=== PATIENT | male | born 1955 | race Caucasian/White ===

== ENCOUNTER 2019-04-24 14:17 | Emergency (ER) | payer MEDICARE, OTHER, SELFPAY ==
[2019-04-24 14:26] VITALS: BP 169/87; PULSE 72; RESP 14; TEMP 36.7; O2SAT 98; BMI 22.9
--- NOTE | 2019-04-24 14:26 | DI.RAD.S_ITS ---
PROCEDURE: XR FOREARM RT 2V INDICATIONS: fall TECHNIQUE: 2 views of the forearm were acquired. COMPARISON: None. FINDINGS: Bones: There is a mildly comminuted and impacted fracture of the distal radial metadiaphysis. Fracture extends to the radiocarpal joint and likely distal radioulnar joint. Soft tissues: There is periarticular soft tissue swelling around the wrist. IMPRESSION: 1. Mildly comminuted and impacted fracture of the distal radius. Dictated by: Talha Olvera M.D. on 04/24/2019 at 15:15 Approved by: Tlaha Olvera M.D. on 04/24/2019 at 15:29
--- NOTE | 2019-04-24 14:36 | ED.UPPEXIN ---
HPI - Extremity Injury (Upper) <KAMILAH Monte - Last Filed: 04/24/19 20:40> General Chief Complaint: Extremity Injury, Upper Stated Complaint: FALL LEFT ARM INJURY Time Seen by Provider: 04/24/19 14:21 Source: patient Mode of arrival: Ambulatory Limitations: no limitations History of Present Illness HPI narrative: 63-year-old male presents emergency department complaining of left wrist and forearm pain after slipping on ice. He states he fell with his left arm hitting the ground on the ulnar aspect of his arm. He denies hitting his head or any other trauma such as knee pain, shoulder pain, elbow pain, clavicle pain, or hip pain. He denies taking any blood thinners. Patient denies numbness, tingling, dizziness, chest pain, shortness of breath, fevers, chills, abdominal pain, or other concerns. Patient's reports the pain is a 6/10 dull aching pain that is worse with flexion and extension of wrist. Related Data Home Medications Medication Instructions Recorded Confirmed tamsulosin 0.8 mg PO BEDTIME 04/24/19 04/24/19 Previous Rx's Medication Instructions Recorded hydrocodone-acetaminophen [Hyndman] 1 tab PO Q4-6H PRN #14 tab 04/24/19 Allergies Allergy/AdvReac Type Severity Reaction Status Date / Time No Known Drug Allergies Allergy Verified 04/24/19 14:26 Review of Systems <KAMILAH Monte - Last Filed: 04/24/19 20:40> Review of Systems Narrative: REVIEW OF SYSTEMS: GENERAL: Denies fever or chills. HENT: No head trauma. EYES: No double vision or vision loss. CARDIOVASCULAR: No chest pain or syncope. RESPIRATORY: No shortness of breath or cough. GASTROINTESTINAL: No nausea, vomiting, diarrhea, or constipation. GENITOURINARY: No flank pain or dysuria. MUSCULOSKELETAL: Complains of left wrist pain, see HPI. INTEGUMENTARY: No rash, lesions, or pruritus. NEURO: No numbness, tingling. PSYCH: No behavior or mood changes. Patient History <KAMILAH Monte - Last Filed: 04/24/19 20:40> Medical History No significant past medical history (Acute) Social History Smoking Status: Unknown if ever smoked Smoking Status: Unknown if ever smoked alcohol intake frequency: holidays/special occasions only Substance Use Type: does not use Exam <KAMILAH Monte - Last Filed: 04/24/19 20:40> Initial Vital Signs Initial Vital Signs: Vital Signs Temperature 98.0 F 04/24/19 14:26 Pulse Rate 72 04/24/19 14:26 Respiratory Rate 14 04/24/19 14:26 Blood Pressure 169/87 H 04/24/19 14:26 Pulse Oximetry 98 04/24/19 14:26 PHYSICAL EXAMINATION: GENERAL: Well groomed, alert, and cooperative. Answers questions promptly and appropriately. Vital signs noted. HENT: Normocephalic, atraumatic. EYES: Symmetrical, sclera white, no periorbital swelling. CARDIOVASCULAR: S1 and S2 sounds normal. Regular rate and rhythm, no murmurs, clicks, or bruits. RESPIRATORY: Normal respiratory rate, trachea midline, airway patent. No stridor, nasal flaring or accessory muscle use. MUSCULOSKELETAL: Swelling and tenderness to left wrist, decreased flexion due to pain. Patient able to supinate and pronate per reports increased pain with supination. Patient able to move all fingers. Normal gait and coordination. Equal tone and mass bilaterally. No spinal tenderness or deformities. Post reduction and splint CMS intact. EXTREMITIES: CMS intact. radial pulses 2+ intact bilaterally. SKIN: Warm, dry, soft, appropriate color for ethnicity. No lesions, rashes, or wounds. NEURO: Alert and Oriented X 3. No sensory deficits. PSYCH: Appropriate affect and mood. <Brenda James DO - Last Filed: 04/27/19 07:31> Initial Vital Signs Initial Vital Signs: Vital Signs Temperature 98.0 F 04/24/19 14:26 Pulse Rate 72 04/24/19 14:26 Respiratory Rate 14 04/24/19 14:26 Blood Pressure 169/87 H 04/24/19 14:26 Pulse Oximetry 98 04/24/19 14:26 <Brenda James DO - Last Filed: 04/27/19 07:31> Nerve Block Nerve Block 1: Time out performed: Yes Local Anesthetic: lidocaine 1% and with epi Amount of anesthesia used (mL): 10 Side: left Nerve Blocks: hematoma block Patient Tolerated Procedure: Well Complications: none Orthopedic Fracture Reduction Fracture #1: Time Out Performed: Yes Side: left Fracture Reduction Location: radius and ulna Analgesia: hematoma block Technique: direct manipulation Post Reduction X-rays Demonstrate: acceptable reduction Post-reduction neuro exam: intact Post-reduction vascular exam: intact Splint Applied: Yes Patient Tolerated Procedure: Well Orthopedic Splinting/Casting Injury #1: Side: left Upper Extremity Injury Location: wrist Upper Extremity Immobilizer: sling/shoulder immobilizer and sugar tong splint Post splinting neuro exam: intact Post splinting vascular exam: intact Placed by: Provider Course <KAMILAH Monte - Last Filed: 04/24/19 20:40> Course Course Narrative: Reduction and nerve block performed by Dr. James. Splinting applied. Post reduction CMS intact. Orders Ordered: Discontinued Medications Lidocaine HCl (Xylocaine 1%) 10 ml INJ NOW ONE Stop: 04/24/19 17:21 Lidocaine/Epinephrine (Xylocaine 2% W/Epi) 20 ml INJ INTRA-OP ONE Stop: 04/24/19 17:25 Consultations Consultation #1: Dr. Rosario consulted, agree with plan for reduction and clinic follow up. Requesting dedicated wrist films post-reduction. Consultation #2: Patient staffed with Dr. James. Vital Signs Vital signs: Vital Signs - 8 hr 04/24/19 14:26 Temperature 98.0 F Pulse Rate 72 Respiratory Rate 14 Blood Pressure 169/87 H Pulse Oximetry 98 <Brenda James DO - Last Filed: 04/27/19 07:31> Orders Ordered: Discontinued Medications Lidocaine HCl (Xylocaine 1%) 10 ml INJ NOW ONE Stop: 04/24/19 17:21 Lidocaine/Epinephrine (Xylocaine 2% W/Epi) 20 ml INJ INTRA-OP ONE Stop: 04/24/19 17:25 Vital Signs Vital signs: Vital Signs - 8 hr 04/24/19 14:26 Temperature 98.0 F Pulse Rate 72 Respiratory Rate 14 Blood Pressure 169/87 H Pulse Oximetry 98 MDM - Extremity Injury (Upper) <KAMILAH Monte - Last Filed: 04/24/19 20:40> Medical Records Attestation: I reviewed the patient's medical records. Lab Data Attestation: I reviewed the patient's lab results. Imaging Data Left wrist XR: Radiologist's Impression: [place] [address] XRay Report Signed Patient: Paul Barber [facility]#: [id number] : [id number] Age/Sex: 63 / MDate of Service: 04/24/19 Loc: ED Accession Number: [id number] Procedure: XR forearm LT 2V Ordering Provider: Brenda James D.O. PROCEDURE: XR FOREARM RT 2V INDICATIONS: fall TECHNIQUE: 2 views of the forearm were acquired. COMPARISON: None. FINDINGS: Bones: There is a mildly comminuted and impacted fracture of the distal radial metadiaphysis. Fracture extends to the radiocarpal joint and likely distal radioulnar joint. Soft tissues: There is periarticular soft tissue swelling around the wrist. IMPRESSION: 1. Mildly comminuted and impacted fracture of the distal radius. Dictated by: Talha Olvera M.D. on 04/24/2019 at 15:15 Approved by: Talha Olvera M.D. on 04/24/2019 at 15:29 Left wrist post reduction: Radiologist's Impression: [address] [address] XRay Report Signed Patient: Paul Barber [facility]#: [id number] : [id number]:[id number] Age/Sex: 63 / MDate of Service: 04/24/19 Loc: ED Accession Number: [id number] Procedure: XR wrist LT min 3V Ordering Provider: Chary Roper PROCEDURE: XR WRIST LT MIN 3V INDICATIONS: Post reduction TECHNIQUE: 2 views of the wrist were acquired. COMPARISON: [facility], , XR FOREARM LT 2V, 04/24/2019, 14:56. FINDINGS: Bones: Splint material obscures fine bone detail. Comminuted distal radius fracture demonstrates slightly improved alignment but persistent mild radial and dorsal displacement of the distal fragments. Distal radioulnar joint is slightly widened. Radiocarpal alignment appears grossly normal. Soft tissues: No suspicious soft tissue calcifications. IMPRESSION: Slightly improved alignment of comminuted distal radius fracture postreduction. Dictated by: Maddison De Los Santos M.D. on 04/24/2019 at 18:49 Approved by: Maddison De Los Santos M.D. on 04/24/2019 at 18:51 [facility] Narrative Medical decision making narrative: This is a 63-year-old male with a comminuted distal radius fracture That was reduced with a hematoma block, Post reduction films showed slightly improved alignment. Patient was placed in a reverse sugar-tong splint. He was given a sling and pain medications and referred to Orthopedic surgery. CMS remains pre and post reduction. Very little concern for any other distracting injuries due to examination. return precautions given for new or worsening symptoms. Patient agrees with plan of care and verbalized understanding. <Brenda James DO - Last Filed: 04/27/19 07:31> [facility] Narrative Medical decision making narrative: I personally seen evaluated patient performed reduction along with hematoma block Discharge Plan Departure Patient Disposition: Home Clinical Impression: Distal radius fracture, left Qualifiers: Encounter type: initial encounter Fracture type: closed Fracture morphology: other fracture Qualified Code(s): S52.592A - Other fractures of lower end of left radius, initial encounter for closed fracture Discharge Date/Time: 04/24/19 18:37 Instructions: DI for Wrist Fracture Activity Restrictions/Additional Instructions: Thank you for entrusting me with your care today. As discussed, please leave the splint in place until you see an orthopedic. Please call the Orthopedics office listed below tomorrow and schedule an appointment, Tell them you were seen in the emergency department. I prescribed you some medication for pain. You have been prescribed a narcotic medication, this medication can make you drowsy. Do not drive while using this medication or perform activities that require mental alertness. These medications can also make you constipated, please use [id number] docusate sodium as needed for constipation. Return emergency department for new or worsening symptoms such as chest pain, shortness of breath, severe worsening of left arm pain, color difference in fingers, or other concerns. Prescriptions: New hydrocodone-acetaminophen [Hyndman] 5-325 mg tablet 1 tab PO Q4-6H PRN (Reason: pain) Qty: 14 RF: 0 No Action tamsulosin 0.4 mg Capsule 0.8 mg PO BEDTIME RF: 0 Referrals: Nando Rosario MD [Physician] - (Mildly comminuted and impacted fracture of the distal radius.) Josue Nevarez MD [Primary Care Provider] -
--- NOTE | 2019-04-24 17:53 | DI.RAD.S_ITS ---
PROCEDURE: XR WRIST LT MIN 3V INDICATIONS: Post reduction TECHNIQUE: 2 views of the wrist were acquired. COMPARISON: [facility], CR, XR FOREARM LT 2V, 04/24/2019, 14:56. FINDINGS: Bones: Splint material obscures fine bone detail. Comminuted distal radius fracture demonstrates slightly improved alignment but persistent mild radial and dorsal displacement of the distal fragments. Distal radioulnar joint is slightly widened. Radiocarpal alignment appears grossly normal. Soft tissues: No suspicious soft tissue calcifications. IMPRESSION: Slightly improved alignment of comminuted distal radius fracture postreduction. Dictated by: Maddison De Los Santos M.D. on 04/24/2019 at 18:49 Approved by: Maddison De Los Santos M.D. on 04/24/2019 at 18:51
--- NOTE | 2019-04-24 18:18 | PC.NURSE ---
1800, noticed color of fingers turning purple/ states left 5th finger going numb/ hedlin aware. rewrap thaddeus/ sl less tight/ color back in fingers and numbness gone per pt. pt reminded that if color of fingers change or fingers become cold or numb to rewrap thaddeus to make more comfortable and to follow up as needed.
== END 2019-04-24 18:37 | disposition home or self-care (01) ==
PROVIDERS: Emergency Provider Nurse Practitioner; PCP Family Medicine
DX: S52.592A Other fractures of lower end of left radius, initial encounter for closed fracture (principal); W00.0XXA Fall on same level due to ice and snow, initial encounter
CPT/HCPCS: 25605; 29125; 64450; 73090; 73110; 99284

== ENCOUNTER → 2019-04-27 13:58 | Outpatient (CLI) | payer MEDICARE, OTHER, SELFPAY ==
[2019-04-27 14:44] LABS: Add Manual Diff / Slide Review NO; Basophils Absolute Auto 100 /uL (0-100); Eosinophils Absolute Auto 100 /uL (0-450); Eosinophils Percent Auto 1.8 % (2-4); Hematocrit 44.1 % (41-53); Hemoglobin 14.7 g/dL (13.5-17.5); Lymphocytes Absolute Auto 1300 /uL (1100-4500); Mean Corpuscular HGB Conc 33.3 % (30-36); Mean Corpuscular Hemoglobin 28.3 PG (26-34); Mean Corpuscular Volume 85.1 fL (80-100); Monocytes Absolute Auto 400 /uL (0-900); Monocytes Percent Auto 7.5 % (3-14); Neutrophils Absolute Auto 3700 /uL (1500-7000); Neutrophils Percent Auto 66.7 % (50-75); Platelet Count 161 X10^3/uL (150-400); Red Blood Cell Count 5.18 X10^6/uL (4.5-5.9); Red Cell Distribution Width 14.8 % (11.6-14.8); White Blood Cell Count 5.5 X10^3/uL (4.5-11.0)
== END ==
PROVIDERS: PCP Family Medicine; Visit Provider Orthopaedic Surgery Adult Reconstructive Orthopaedic Surgery
DX: Z01.818 Encounter for other preprocedural examination (principal); Z01.812 Encounter for preprocedural laboratory examination
CPT/HCPCS: 36415; 85025; 93005

== ENCOUNTER → 2020-10-22 13:05 | Outpatient (CLI) | payer MEDICARE, OTHER, SELFPAY ==
[2020-10-22 19:50] LABS: Prostate Specific Antigen 4.43 ng/mL (0.10-4.00)
== END ==
PROVIDERS: PCP Family Medicine; Visit Provider Specialist
DX: N13.8 Other obstructive and reflux uropathy (principal); N40.1 Benign prostatic hyperplasia with lower urinary tract symptoms; Z87.898 Personal history of other specified conditions
CPT/HCPCS: 84153

== ENCOUNTER → 2020-10-27 10:45 | Outpatient (CLI) | payer MEDICARE, OTHER, SELFPAY ==
[2020-10-27 20:01] LABS: Add Manual Diff / Slide Review NO; Basophils Absolute Auto 0 /uL (0-100); Eosinophils Absolute Auto 100 /uL (0-450); Eosinophils Percent Auto 1.4 % (2-4); Hematocrit 43.7 % (41-53); Hemoglobin 14.7 g/dL (13.5-17.5); Lymphocytes Absolute Auto 1100 /uL (1100-4500); Lymphocytes Percent Auto 24.9 % (25-40); Mean Corpuscular HGB Conc 33.7 % (30-36); Mean Corpuscular Hemoglobin 28.2 PG (26-34); Mean Corpuscular Volume 83.9 fL (80-100); Monocytes Absolute Auto 400 /uL (0-900); Monocytes Percent Auto 8.5 % (3-14); Neutrophils Absolute Auto 2900 /uL (1500-7000); Neutrophils Percent Auto 64.2 % (50-75); Platelet Count 229 X10^3/uL (150-400); Red Blood Cell Count 5.22 X10^6/uL (4.5-5.9); Red Cell Distribution Width 14.8 % (11.6-14.8); White Blood Cell Count 4.5 X10^3/uL (4.5-11.0)
[2020-10-27 20:11] LABS: Alanine Aminotransferase 36 IU/L (<50); Albumin Globulin Ratio 1.5 (1.0-2.8); Alkaline Phosphatase 79 U/L (38-126); Aspartate Aminotransferase 39 IU/L (17-59); BUN Creatinine Ratio 16.5 (6-22); Bilirubin Total 0.6 mg/dL (0.2-1.3); Blood Urea Nitrogen 16 mg/dL (9-20); Calcium 9.5 mg/dL (8.4-10.2); Carbon Dioxide 30 mmol/L (22-32); Chloride 100 mmol/L (98-107); Estimated Glomerular Filt Rate > 60.0 mL/min (>60); Globulin 2.6 g/dL (1.7-4.1); Glucose 100 mg/dL (80-110); HEMOLYSIS < 15 (0-50); Potassium 5.3 mmol/L (3.4-5.1); Sodium 136 mmol/L (137-145); Total Protein 6.6 g/dL (6.3-8.2)
== END ==
PROVIDERS: PCP Family Medicine; Visit Provider Physician Assistant
DX: K30 Functional dyspepsia (principal); R63.0 Anorexia; R68.81 Early satiety
CPT/HCPCS: 80053; 85025

== ENCOUNTER → 2020-11-05 11:07 | Outpatient (CLI) | payer MEDICARE, OTHER, SELFPAY ==
--- NOTE | 2020-11-05 11:08 | DI.MRI.S_ITS ---
PROCEDURE: MR ABDOME PELVIS WWO CON INDICATIONS: loss of appetite, early satiety, sensation of fullness abdom TECHNIQUE: Coronal HASTE, axial 2D FLASH in- and [id number]; axial breath-hold T2 FSE; dynamic axial VIBE during IV gadolinium administration; postgadolinium coronal VIBE or 2D FLASH with fat saturation from the hepatic dome to the iliac crests. COMPARISON: None. FINDINGS: Image quality: Limited by patient breathing motion during image acquisition.. Lung bases: No lesions found. 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 Nodes and vessels: No aneurysm or dissection suspected. Bowel and peritoneum: Large and small bowel visualized appears normal. Pelvis: The median lobe of the prostate gland appears heterogeneous and enlarged, moderately, invaginating against the bladder wall. Bones and soft tissues: No osseous lesion found. IMPRESSION: Prostate gland enlargement, prominence of the median lobe of the prostate gland invaginating against the bladder wall at and to the right of midline. Urology consultation may be warranted if there is evidence of diminishing bladder function. Please correlate with PSA values to determine whether urology consultation and prostate gland biopsy is warranted. Dictated by: Juan Godinez M.D. on 11/05/2020 at 16:40 Approved by: Juan Godinez M.D. on 11/05/2020 at 16:47
== END ==
PROVIDERS: Referring Provider Physician Assistant; Visit Provider Physician Assistant
DX: R63.0 Anorexia (principal); R68.81 Early satiety; R10.9 Unspecified abdominal pain; K30 Functional dyspepsia; N40.0 Benign prostatic hyperplasia without lower urinary tract symptoms
CPT/HCPCS: 72197; 99214; A9579

== ENCOUNTER → 2020-12-01 09:34 | Outpatient (CLI) | payer MEDICARE, OTHER, SELFPAY ==
[2020-12-01 20:33] LABS: COVID19 - ORCAS (NP or Nasal) Negative (Negative)
== END ==
PROVIDERS: PCP Physician Assistant; Visit Provider Physician Assistant
DX: Z20.822 Contact with and (suspected) exposure to COVID-19 (principal)
CPT/HCPCS: C9803; U0003

== ENCOUNTER 2020-12-04 13:44 | Day surgery (SDC) | payer MEDICARE, OTHER, SELFPAY ==
--- NOTE | 2020-12-04 | PATH_ITS ---
[facility] Accession Number: [id number] . 01 Material submitted: . gastrointestinal site - GASTRIC POLYPS . 01 Clinical history: . EGD/COLONOSCOPY . 02 Diagnosis: Stomach, Polyps, Biopsies: Fundic gland polyps. No evidence of Helicobacter organisms on H/E stain. Negative for intestinal metaplasia. Negative for dysplasia and malignancy. [facility] 12/08/2020 1448 Local . 02 Electronically signed: . Josey Lopez MD, Pathologist NPI- [id number] . 01 Gross description: . GASTRIC POLYPS: Received in formalin are 2 fragment(s) of vasques, soft tissue measuring 0.7 x 0.5 x 0.4 cm to 0.6 x 0.5 x 0.5 cm which are inked, bisected and submitted entirely in 1 cassette(s) /QBJ 12/05/2020 0311 Local . 02 Pathologist provided ICD-10: R10.9 . 02 CPT . 645013 Performed at: 01 [facility] [address], [place], [place] [id number] MD Talha Aragon MD Phone: [phone] Performed at: 02 [facility] [address] [place], [place] [id number] MD Josey Lopez MD Phone: [phone]
[2020-12-04] MEDS: LACTATED RINGERS 1,000 ML 200 ML IV (14:03)
[2020-12-04 14:08] VITALS: BP 132/85; PULSE 104; RESP 16; TEMP 36.7; O2SAT 99; BMI 23.1
--- NOTE | 2020-12-04 14:21 | PM.PREOP ---
Pre-operative Note Interval Note History & Physical reviewed/Exam performed by Physician: Yes Changes to H&P: No
--- NOTE | 2020-12-04 15:13 | PM.OP.ENDO ---
Operative Date/Time/Diagnoses Date of procedure: 12/04/20 Time of procedure: 15:14 Pre-op diagnosis: anorexia. screening colonoscopy Post-op diagnosis: same Procedure & Clinicians Study performed: EGD and colonoscopy Same procedure as scheduled: Yes Indications: anorexia, screening Surgeon: Stanislav Bird Procedure Notes Procedure in detail: Patient placed in left lateral decubitus position. Time out was performed. Procedural sedation was administered with Versed and Fentanyl. A bite block was placed. the scope was inserted into the mouth and advanced through the esophagus and into the stomach. The stomach was notable for multiple gastric polyps of approximately 1 cm. The polyps were removed with hot snare. The pylorus was intubated and the duodenum was normal to the 2nd portion. The scope was retroflexed within the stomach and there was no hiatal hernia. No ulcers, or gastritis. The scope was withdrawn into the esophagus the Z line was seen at 40 cm from the incisions. There was no Yousif's esophagitis or masses or strictures. Stomach was desufflated and scope removed. Patient tolerated procedure well. Examination began with a thorough inspection of the perianal area there was no evidence of fissures, fistulae, external hemorrhoids or cutaneous malignancy. The colonoscopy scope was then placed into the anal canal and was advanced to the cecum, which was identified by the ileocecal valve, the appendiceal orifice and the confluence of the taenia. The scope was then slowly withdrawn examining colon thoroughly in all directions, irrigating it of any residual stool. FINDINGS 1.Gastric polyps 2. Sigmoid diverticuloisis 3. No colonic masses or polyps The patient tolerated the procedure well. They will be discharged once criteria are met. The prep was of fair quality. The withdrawl time was 11 minutes. The sedation time was 43 minutes. Specimen(s): other (gastric polyps) Complications: none Impression: gastric polyps Post-procedure Plan for aftercare: will follow up with biopsy results Disposition: same day surgery
[2020-12-04 15:16] VITALS: BP 117/70; PULSE 90; RESP 14; TEMP 36.4; O2SAT 96
[2020-12-04] MEDS: LIDOCAINE 4% SOLN 50 ML 20 ML TOP (15:16)
[2020-12-04] MEDS: MIDAZOLAM 5 MG/5 ML VIAL IV (15:16)
[2020-12-04] MEDS: fentaNYL 250 MCG/5 ML INJ IV (15:17)
[2020-12-04 15:21] VITALS: BP 120/70; PULSE 83; RESP 12; O2SAT 96
[2020-12-04 15:26] VITALS: BP 126/79; PULSE 100; RESP 12; O2SAT 97
[2020-12-04 15:31] VITALS: BP 122/77; PULSE 94; RESP 13; TEMP 36.7; O2SAT 98
[2020-12-04 15:38] VITALS: BP 122/77; PULSE 88; RESP 17; TEMP 36.7; O2SAT 98
== END 2020-12-04 16:05 | disposition home or self-care (01) ==
PROVIDERS: PCP Physician Assistant; Referring Provider Surgery; Visit Provider Surgery
PROC: 0DJ08ZZ Inspection of Upper Intestinal Tract, Via Natural or Artificial Opening Endoscopic (ICD-10-PCS; CPT 43235; principal; 2020-12-04 14:30)
PROC: 0DJD8ZZ Inspection of Lower Intestinal Tract, Via Natural or Artificial Opening Endoscopic (ICD-10-PCS; CPT 45378; 2020-12-04 14:30)
DX: R10.9 Unspecified abdominal pain (principal); R63.0 Anorexia; K31.7 Polyp of stomach and duodenum; K57.30 Diverticulosis of large intestine without perforation or abscess without bleeding
CPT/HCPCS: 43251; 45378; 99152; 99153; J2250; J3010

== ENCOUNTER → 2021-05-29 13:33 | Outpatient (CLI) | payer MEDICARE, OTHER, SELFPAY ==
[2021-05-29 20:14] LABS: Prostate Specific Antigen 2.36 ng/mL (0.10-4.00)
== END ==
PROVIDERS: PCP Physician Assistant; Visit Provider Specialist
DX: R97.20 Elevated prostate specific antigen [PSA] (principal)
CPT/HCPCS: 84153

== ENCOUNTER → 2021-09-11 12:13 | Outpatient (CLI) | payer MEDICARE, OTHER, SELFPAY ==
--- NOTE | 2021-09-11 12:15 | DI.MRI.S_ITS ---
PROCEDURE: MR LUMBAR SPINE WO CON INDICATIONS: Right L5 radiculopathy TECHNIQUE: Noncontrast sagittal T1 spin echo and T2 fast echo, sagittal STIR, and T2 fast spin echo through the lumbar spine. Additional oblique axial images were obtained through the lower lumbar spine. In cases with scoliosis, additional coronal T2 fast spin echo may be performed. COMPARISON: [facility], CT, ABDOMEN/PELVIS WITH CONTRAST, 11/19/2016, 11:38. [facility] ([place]), CR, XR LUMBAR SPINE 2-3V, 03/26/2021, 14:21. FINDINGS: Image quality: Excellent. Alignment and Curvature: There is mild grade 1 anterolisthesis at the L4-L5 level. At L5-S1, there is minimal retrolisthesis seen. Bone Marrow: Marrow is of normal overall signal. No acute vertebral body compression fractures. Spinal Cord: Conus medullaris terminates at the L1 level. Visualized cord demonstrates normal signal and size. Paraspinous Soft Tissues: No paravertebral masses. T12-L1: Normal appearance. L1-L2: Normal appearance. L2-L3: Muqf-ls-zcofahgm loss of disc height and disc signal can be seen. Moderate disc bulge is seen, which is eccentric to the left. Mild facet joint hypertrophy is seen. There is a superimposed central disc protrusion. Moderate bilateral neural foraminal narrowing can be seen, left worse than right. Moderate central canal narrowing is seen. L3-L4: The disc height is well-preserved. Loss of disc signal is seen at this level. Moderate generalized disc bulge is seen. There is a superimposed central disc protrusion. Moderate facet joint hypertrophy is seen. There is moderate to severe left-sided and at least moderate right-sided neural foraminal narrowing. There is a degree of compression seen upon the exiting L3 nerve roots. Moderate central canal narrowing is seen. L4-L5: Moderate loss of disc height is seen. Loss of disc signal is seen. At least moderate disc bulge is seen. There is a mild center disc extrusion seen. Moderate to prominent facet hypertrophy is seen. There is moderate to severe bilateral neural foraminal narrowing seen, with an associated a degree of compression seen upon the exiting nerve roots. There is severe central canal narrowing seen, as on series 6, image 29. L5-S1: At least moderate loss of disc height and disc signal can be seen. Mild to moderate disc bulge is seen. There is a superimposed central disc protrusion. There is a focal annular fissure seen posteriorly. Mild to moderate facet hypertrophy is seen. There is at least moderate bilateral neural foraminal narrowing seen. Moderate central canal narrowing is seen. IMPRESSION: Multiple levels of lumbar spine degenerative change are seen, which are worst at the L4-L5 level, where there is severe central canal narrowing and moderate to severe bilateral neural foraminal narrowing, with associated compression upon the exiting L4 nerve roots. Dictated by: Clint Hagan M.D. on 09/11/2021 at 12:32 Approved by: Clint Hagan M.D. on 09/11/2021 at 12:37
== END ==
PROVIDERS: Referring Provider Physical Medicine & Rehabilitation; Visit Provider Physical Medicine & Rehabilitation
DX: M47.26 Other spondylosis with radiculopathy, lumbar region (principal); M47.27 Other spondylosis with radiculopathy, lumbosacral region; M48.061 Spinal stenosis, lumbar region without neurogenic claudication; M48.07 Spinal stenosis, lumbosacral region
CPT/HCPCS: 72148

== ENCOUNTER → 2021-09-28 07:36 | Outpatient (CLI) | payer MEDICARE, OTHER, SELFPAY ==
[2021-09-28 20:22] LABS: COVID19 - ORCAS (NP or Nasal) Negative (Negative)
== END ==
PROVIDERS: Visit Provider Family Medicine
DX: Z20.822 Contact with and (suspected) exposure to COVID-19 (principal)
CPT/HCPCS: C9803; U0003

== ENCOUNTER 2021-09-29 14:53 | Outpatient (CLI) | payer MEDICARE, OTHER, SELFPAY ==
[2021-09-29] VITALS (9 sets, daily range): BP systolic 150–192; BP diastolic 88–110; PULSE 74–98; RESP 15–24; TEMP 36.8; O2SAT 96–100
--- NOTE | 2021-09-29 14:55 | DI.RAD.S_ITS ---
PROCEDURE: PAIN L/S TRANSFORAM INJECT JAYLAN COMPARISON: Located Within [facility], MR, MR LUMBAR SPINE WO CON, 09/11/2021, 12:34. [facility] ([place]), CR, XR LUMBAR SPINE 2-3V, 03/26/2021, 14:21. INDICATIONS: SPONDYLOSIS FINDINGS: 7 intraoperative fluoroscopy images were obtained demonstrating needle placement at the level of L4-L5 bilaterally. IMPRESSION: Fluoroscopy for needle placement. Dictated by: Cathy Zambrano M.D. on 09/29/2021 at 17:12 Approved by: Cathy Zambrano M.D. on 09/29/2021 at 17:13
[2021-09-29] MEDS: MIDAZOLAM 2 MG/2 ML VIAL (16:20)
[2021-09-29] MEDS: MIDAZOLAM 5 MG/5 ML VIAL IV (16:25)
[2021-09-29] MEDS: IOPAMIDOL 15 ML VIAL 3 ML INJ (16:26)
[2021-09-29] MEDS: BUPIVACAINE 0.25% (PF) VIAL 2 ML INJ (16:26)
[2021-09-29] MEDS: BETAMETHASONE 30 MG/5 ML MDV 12 MG INJ (16:27)
[2021-09-29] MEDS: DEXAMETHASONE 10 MG/ML VIAL 20 MG INJ (16:27)
--- NOTE | 2021-09-29 16:40 | PM.PROC.IR.1 ---
Date/Time/Diagnoses Date of procedure: 09/29/21 Time of procedure: 16:40 Pre-procedure diagnosis: 1. FORAMINAL STENOSIS WITH LE SYMPTOMS Procedure Notes Procedure: 1. FLUOROSCOPICALLY GUIDED CONTRAST CONTROLLED TRANSFORAMINAL EPIDURAL STEROID INJECTION - BILATERAL L4/5 TFESI Indications: Paul is referred by Dr. Pineda for treatment of Foraminal Stenosis with bilateral LE Symptoms Physician: Vinicius Cabrera Total Fluoroscopy time (seconds): 13 Total sedation minutes: 16 Complications: none Procedure in detail & Post-procedure care: FINDINGS Foraminal Nerve Root Compression secondary to disc disease and facet hypertrophy DESCRIPTION OF PROCEDURE Following review of allergy and review of potential side effects and complications, including, but not necessarily limited to, infection, allergic reaction, local tissue breakdown, stroke, temporary or permanent nerve injury, paralysis, and possible , the patient indicated that the patient understood and agreed to proceed. An informed consent document was signed by the patient, witnessed by a nurse, and placed in the patient's chart. Additionally, other treatment options including medications, modalities, and physical therapy were reviewed with the patient. After review of previous anaesthesic history and IV conscious sedation the patient was deemed safe to proceed with today?s procedure with IV conscious sedation as ASA class II designation. Safety time-out was performed to confirm patient ID, procedure to be performed and site of procedure. IV sedation was accomplished with a combination of 4mg of Versed was administered by the RN after DO order, titrated to patient comfort during the course of the procedure while the patient remained responsive to all verbal commands In the prone position following sterile prep and drape of the lumbar region, the right L4/5 posterior neuroforamen was identified fluoroscopically. The skin was anesthetized via a 25-gauge 1.5-inch needle with 1% lidocaine solution. At this point, a 25-gauge 3.5-inch spinal needle was atraumatically introduced and advanced under fluoroscopic guidance through the posterior right L4/5 neuroforamen to approximately the anterior aspect of the canal. Depth was confirmed on lateral view. Following negative aspiration, injection of approximately 1.5cc of Isovue 200 under live fluoroscopy in the AP view confirmed excellent flow along the nerve root, into the epidural space without vascular or intrathecal uptake observed Radiological data, including multiple fluoroscopic views of the lumbosacral spine, reveal a spinal needle at the right L4/5 posterior neuroforamen. Subsequent views show flow of contrast material flowing superiorly and inferiorly along the nerve root confirming epidural flow. Subsequently, a test dose of 1.5cc of 1% lidocaine solution was administered and patient was observed for two minutes for signs or symptoms of complications, including abdominal pain, shortness of breath, bilateral upper or lower extremity weakness, nausea and vomiting, prior to steroid injection. At this point, a total of 3cc or 20mg of dexamethasone and 6mg betamethasone was injected without incident. Attention was then refocused to the left L4/5 level where the identical procedure was replicated. The procedure tolerated the procedure well without signs or symptoms of complications prior to transfer to the recovery area continued monitoring without incident. The patient was then transferred to the recovery area where they were observed for an appropriate time after the injection. The patient reported a VAS score of 7 prior to the procedure and a post-procedure VAS of 0. POST OP INSTRUCTIONS The patient was provided a Pain Log to continue to record their response to the target-specific procedure prior to follow-up visit with their referring physician. Additionally, specific post-injection care instructions and a contact number to our office were provided if concerns arise regarding possible complications associated with the procedure are suspected.
== END 2021-09-29 16:55 | disposition home or self-care (01) ==
LOC: RAD 14:54
PROVIDERS: PCP Family Medicine; Referring Provider Physical Medicine & Rehabilitation; Visit Provider Physical Medicine & Rehabilitation
DX: M48.061 Spinal stenosis, lumbar region without neurogenic claudication (principal); M51.16 Intervertebral disc disorders with radiculopathy, lumbar region
CPT/HCPCS: 64483; 99152; J0702; J1100; J2250

== ENCOUNTER → 2022-01-04 14:19 | Outpatient (CLI) | payer MEDICARE, OTHER, SELFPAY ==
[2022-01-04 20:56] LABS: Prostate Specific Antigen 2.22 ng/mL (0.10-4.00)
== END ==
PROVIDERS: PCP Family Medicine; Visit Provider Specialist
DX: R97.20 Elevated prostate specific antigen [PSA] (principal)
CPT/HCPCS: 84153

== ENCOUNTER → 2022-02-09 10:56 | Outpatient (CLI) | payer MEDICARE, OTHER, SELFPAY ==
[2022-02-09 19:38] LABS: Alanine Aminotransferase 35 IU/L (<50); Albumin 4.2 g/dL (3.5-5.0); Albumin Globulin Ratio 1.5 (1.0-2.8); Alkaline Phosphatase 119 U/L (38-126); Aspartate Aminotransferase 38 IU/L (17-59); BUN Creatinine Ratio 18.9 (6-22); Bilirubin Total 1.1 mg/dL (0.2-1.3); Blood Urea Nitrogen 20 mg/dL (9-20); Calcium 9.2 mg/dL (8.4-10.2); Carbon Dioxide 27 mmol/L (22-32); Chloride 101 mmol/L (98-107); Cholesterol 167 mg/dL (140-199); Estimated Glomerular Filt Rate > 60 mL/min (>60); Globulin 2.8 g/dL (1.7-4.1); Glucose 101 mg/dL (80-110); HDL Cholesterol 44 mg/dL (40-60); HEMOLYSIS 31 (0-50); LDL Cholesterol Calculated 108 mg/dL (<100); Potassium 4.5 mmol/L (3.4-5.1); Sodium 137 mmol/L (137-145); Triglycerides 75 mg/dL (35-150)
== END ==
PROVIDERS: PCP Physician Assistant; Visit Provider Physician Assistant
DX: I10 Essential (primary) hypertension (principal)
CPT/HCPCS: 80053; 80061

== ENCOUNTER 2022-05-18 12:07 | Outpatient (CLI) | payer MEDICARE, OTHER, SELFPAY ==
[2022-05-18] VITALS (8 sets, daily range): BP systolic 128–161; BP diastolic 73–92; PULSE 68–84; RESP 14–18; TEMP 36.2; O2SAT 98–100
--- NOTE | 2022-05-18 12:09 | DI.RAD.S_ITS ---
PROCEDURE: PAIN L INTERLAMINAR/CAUDAL INJ INDICATIONS: SPONDYLOSIS COMPARISON: None. FINDINGS: Fluoroscopic spot filming was performed to verify placement of spinal needles at the L4-5 level(s), as labeled on the films. Appropriate location(s) of the needle tip(s) was confirmed by injection of iodinated contrast. IMPRESSION: Fluoro guidance was provided intraoperatively for L4-5 Tel epidural steroid injection to performed by the ordering physician. Dictated by: Dez Lindsey M.D. on 05/18/2022 at 16:21 Approved by: Dez Lindsey M.D. on 05/18/2022 at 16:22
[2022-05-18] MEDS: MIDAZOLAM 2 MG/2 ML VIAL IV (13:44)
[2022-05-18] MEDS: BUPIVACAINE 0.25% (PF) VIAL 2 ML INJ (13:49)
[2022-05-18] MEDS: IOPAMIDOL 15 ML VIAL 3 ML INJ (13:50)
[2022-05-18] MEDS: BETAMETHASONE 30 MG/5 ML MDV 6 MG INJ (13:50)
[2022-05-18] MEDS: DEXAMETHASONE 10 MG/ML VIAL 20 MG INJ (13:51)
--- NOTE | 2022-05-18 13:58 | P.PCN_ITS ---
Date/Time/Diagnoses Date of procedure: 05/18/22 Time of procedure: 13:58 Pre-procedure diagnosis: 1. HNP WITH RADICULAR FEATURES, 2. MULTILEVEL CENTRAL STENOSIS, Post-procedure diagnosis: same Procedure Notes Procedure: 1. FLUOROSCOPICALLY GUIDED CONTRAST CONTROLLED INTERLAMINAR EPIDURAL STEROID INJECTION -L4/5 Indications: Paul is referred by JIMMIE Ricketts for treatment of Bilateral Foraminal Stenosis R>L LE symptoms. Physician: Vinicius Cabrera Total Fluoroscopy time (seconds): 6 Total sedation minutes: 10 Complications: none Procedure in detail & Post-procedure care: FINDINGS Multilevel Central Spinal Stenosis with Nerve Root Compression DESCRIPTION OF PROCEDURE Fluoroscopically guided, contrast-controlled L4/5 translaminar epidural steroid injection. Following review of allergy and review of potential side effects and complications, including, but not necessarily limited to, infection, allergic reaction, local tissue breakdown, temporary as well as permanent nerve injury, paralysis, stroke and possible , the patient indicated that the patient understood and agreed to proceed. An informed consent document was signed by the patient, witnessed by a nurse, and placed in the patient's chart. Additionally, other treatment options including modalities, medications, and physical therapy were reviewed with the patient. After review of previous anaesthesic history and IV conscious sedation the patient was deemed safe to proceed with today?s procedure with IV conscious sedation as ASA class II designation. Safety time-out was performed to confirm patient ID, procedure to be performed and site of procedure. IV sedation was accomplished with a combination of 2mg of Versed was administered by the RN after DO order, titrated to patient comfort during the course of the procedure while the patient remained responsive to all verbal commands In the prone position, following sterile prep and drape of the lumbar region, the L4/5 translaminar space was identified fluoroscopically. The skin was anesthetized via a 25-gauge, 1.5inch needle with 1% lidocaine solution. At this point, a 22-gauge short bevel spinal needle was atraumatically introduced and advanced under fluoroscopic guidance into the region of the L4/5 translaminar space. Depth was confirmed on lateral view. Radiological data, including multiple fluoroscopic views of the lumbar spine, reveal a spinal needle at the L4/5 translaminar space. Lateral views then show placement of the needle in the epidural space. Subsequent views show contrast material flowing superiorly and inferiorly in the epidural space. No vascular or intrathecal uptake is observed. At this point, using loss of resistance technique with saline and air, the epidural space was entered. This was confirmed following negative aspiration with injection of approximately 1.5cc of Isovue 200, showing excellent epidural flow without vascular or intrathecal uptake. At this point, 1cc of 1% lidocaine solution combined with 3cc or 20mg of dexamethasone and 6mg betamethasone was injected without incident. The patient tolerated the procedure well without signs or symptoms of complications prior to transfer to the recovery area continued monitoring without incident. The patient was then transferred to the recovery area where they were observed for an appropriate period of time after the injection. The patient reported a VAS score of 6 prior to the procedure and a post- procedure VAS of 0. POST OP INSTRUCTIONS The patient was provided a Pain Log to continue to record their response to the target-specific procedure prior to follow-up visit with their referring physician. Additionally, specific post-injection care instructions and a contact number to our office were provided if concerns arise regarding possible complications associated with the procedure are suspected.
== END 2022-05-18 14:25 | disposition home or self-care (01) ==
PROVIDERS: PCP Physician Assistant; Referring Provider Physical Medicine & Rehabilitation; Visit Provider Physical Medicine & Rehabilitation
DX: M51.16 Intervertebral disc disorders with radiculopathy, lumbar region (principal); M48.061 Spinal stenosis, lumbar region without neurogenic claudication
CPT/HCPCS: 62323; 99152; J0702; J1100; J2250; J3490

== ENCOUNTER → 2022-07-01 11:30 | Outpatient (CLI) | payer MEDICARE, OTHER, SELFPAY ==
[2022-07-01 20:38] LABS: Prostate Specific Antigen 1.14 ng/mL (0.10-4.00)
== END ==
PROVIDERS: PCP Physician Assistant; Visit Provider Specialist
DX: R97.20 Elevated prostate specific antigen [PSA] (principal)
CPT/HCPCS: 84153

== ENCOUNTER 2022-09-09 13:52 | Outpatient (CLI) | payer MEDICARE, OTHER, SELFPAY ==
[2022-09-09] VITALS (9 sets, daily range): BP systolic 130–174; BP diastolic 78–96; PULSE 68–88; RESP 12–21; TEMP 36.7; O2SAT 97–100
--- NOTE | 2022-09-09 13:54 | DI.RAD.S_ITS ---
PROCEDURE: PAIN L/S TRANSFORAM INJECT JAYLAN COMPARISON: [facility], XA, PAIN L/S TRANSFORAM INJECT JAYLAN, 09/29/2021, 16:22. INDICATIONS: SPONDYLOSIS FINDINGS: Intraoperative fluoroscopy was used to localize the L4-5 facet joints bilaterally. Fluoroscopic views demonstrated needle in the right and left L4-5 facet joints with injection of contrast. IMPRESSION: Intraoperative fluoroscopy for bilateral L4-5 transforaminal steroid injection. Dictated by: Maddison De Los Santos M.D. on 09/09/2022 at 16:59 Approved by: Maddison De Los Santos M.D. on 09/09/2022 at 17:00
[2022-09-09] MEDS: MIDAZOLAM 2 MG/2 ML VIAL IV (14:30)
[2022-09-09] MEDS: BETAMETHASONE 30 MG/5 ML MDV 6 MG INJ (14:41)
[2022-09-09] MEDS: IOPAMIDOL 15 ML VIAL 3 ML INJ (14:41)
[2022-09-09] MEDS: BUPIVACAINE 0.25% (PF) VIAL 2 ML INJ (14:42)
[2022-09-09] MEDS: DEXAMETHASONE 10 MG/ML VIAL 20 MG INJ (14:42)
--- NOTE | 2022-09-09 14:47 | PM.PROC.IR.1 ---
Date/Time/Diagnoses Date of procedure: 09/09/22 Time of procedure: 14:47 Pre-procedure diagnosis: 1. FORAMINAL STENOSIS WITH LE SYMPTOMS Procedure Notes Procedure: 1. FLUOROSCOPICALLY GUIDED CONTRAST CONTROLLED TRANSFORAMINAL EPIDURAL STEROID INJECTION - BILATERAL L4/5 TFESI Indications: Paul is referred by JIMMIE Ricketts for treatment of Foraminal Stenosis with bilateral LE Symptoms Physician: Vinicius Cabrera Total Fluoroscopy time (seconds): 14 Total sedation minutes: 13 Complications: none Procedure in detail & Post-procedure care: FINDINGS Foraminal Nerve Root Compression secondary to disc disease and facet hypertrophy DESCRIPTION OF PROCEDURE Following review of allergy and review of potential side effects and complications, including, but not necessarily limited to, infection, allergic reaction, local tissue breakdown, stroke, temporary or permanent nerve injury, paralysis, and possible , the patient indicated that the patient understood and agreed to proceed. An informed consent document was signed by the patient, witnessed by a nurse, and placed in the patient's chart. Additionally, other treatment options including medications, modalities, and physical therapy were reviewed with the patient. After review of previous anaesthesic history and IV conscious sedation the patient was deemed safe to proceed with today?s procedure with IV conscious sedation as ASA class II designation. Safety time-out was performed to confirm patient ID, procedure to be performed and site of procedure. IV sedation was accomplished with a combination of 2mg of Versed was administered by the RN after DO order, titrated to patient comfort during the course of the procedure while the patient remained responsive to all verbal commands In the prone position following sterile prep and drape of the lumbar region, the right L4/5 posterior neuroforamen was identified fluoroscopically. The skin was anesthetized via a 25-gauge 1.5-inch needle with 1% lidocaine solution. At this point, a 25-gauge 3.5-inch spinal needle was atraumatically introduced and advanced under fluoroscopic guidance through the posterior right L4/5 neuroforamen to approximately the anterior aspect of the canal. Depth was confirmed on lateral view. Following negative aspiration, injection of approximately 1.5cc of Isovue 200 under live fluoroscopy in the AP view confirmed excellent flow along the nerve root, into the epidural space without vascular or intrathecal uptake observed Radiological data, including multiple fluoroscopic views of the lumbosacral spine, reveal a spinal needle at the right L4/5 posterior neuroforamen. Subsequent views show flow of contrast material flowing superiorly and inferiorly along the nerve root confirming epidural flow. Subsequently, a test dose of 1.5cc of 1% lidocaine solution was administered and patient was observed for two minutes for signs or symptoms of complications, including abdominal pain, shortness of breath, bilateral upper or lower extremity weakness, nausea and vomiting, prior to steroid injection. At this point, a total of 3cc or 20mg of dexamethasone and 6mg betamethasone was injected without incident. Attention was then refocused to the left L4/5 level where the identical procedure was replicated. The procedure tolerated the procedure well without signs or symptoms of complications prior to transfer to the recovery area continued monitoring without incident. The patient was then transferred to the recovery area where they were observed for an appropriate time after the injection. The patient reported a VAS score of 7 prior to the procedure and a post-procedure VAS of 0. POST OP INSTRUCTIONS The patient was provided a Pain Log to continue to record their response to the target-specific procedure prior to follow-up visit with their referring physician. Additionally, specific post-injection care instructions and a contact number to our office were provided if concerns arise regarding possible complications associated with the procedure are suspected.
== END 2022-09-09 15:30 | disposition home or self-care (01) ==
PROVIDERS: PCP Physician Assistant; Referring Provider Physical Medicine & Rehabilitation; Visit Provider Physical Medicine & Rehabilitation
DX: M54.16 Radiculopathy, lumbar region (principal); M48.061 Spinal stenosis, lumbar region without neurogenic claudication
CPT/HCPCS: 64483; 99152; J0702; J1100; J2250; J3490

== ENCOUNTER 2023-04-13 11:15 | Day surgery (SDC) | payer MEDICARE, OTHER, SELFPAY ==
[2023-04-07 10:54] VITALS: BMI 22.2
--- NOTE | 2023-04-12 09:14 | PM.PREOP ---
Pre-operative Note Interval Note History & Physical reviewed/Exam performed by Physician: Yes Changes to H&P: No
--- NOTE | 2023-04-12 09:15 | PM.PREOP ---
Pre-operative Note Interval Note History & Physical reviewed/Exam performed by Physician: Yes Changes to H&P: No
[2023-04-13] VITALS (7 sets, daily range): BP systolic 114–149; BP diastolic 64–79; PULSE 61–75; RESP 11–18; TEMP 36.2–36.3; O2SAT 94–100; BMI 22.2
[2023-04-13] MEDS: LACTATED RINGERS 1,000 ML 21 ML IV (11:42)
[2023-04-13] MEDS: CEFAZOLIN 2 GM/100 ML PREMIX 100 ML IV (13:25)
--- NOTE | 2023-04-13 13:36 | SUR.OPER ---
Supine on padded OR bed, head on pillow, safety belt at thigh, bilateral arms padded and tucked at side. Legs uncrossed. Tape over blanket to secure lower legs.
[2023-04-13] MEDS: BUPIVACAINE 0.25% (PF) VIAL 30 ML INJ (13:46)
--- NOTE | 2023-04-13 15:20 | PM.OP.1 ---
Operative Date/Time/Diagnoses Date of procedure: 04/13/23 Time of procedure: 15:20 Pre-op diagnosis: Bilateral inguinal hernia and umbilical hernia Post-op diagnosis: same Procedure & Clinicians Procedure: laparoscopic repair of bilateral inguinal hernia open repair of umbilical hernia Same procedure as scheduled: Yes Indications: Symptomatic bilateral inguinal and umbilical hernia repair Surgeon: Stanislav Bird Anesthesia Type: General Operative Notes Findings: LEFT-Direct and indirect hernia defect RIGHT-Direct defect only UMBILICAL-1 cm fascial defect Specimen(s): none sent Estimated Blood Loss (mL): 30 Procedure in detail: The patient was brought to the operating room and placed supine on the table. Bilateral sequential compression devices were applied. General anesthesia was induced and they were intubated with an endotracheal tube. A owen cath was placed in sterile fashion. They received 2 g Ancef prior to skin incision. They were prepped and draped in sterile fashion. A time out was performed to ensure the correct patient, procedure and necessary equipment within the operating room. The skin was infiltrated with 0.25% bupivicaine. A infra umbilical incision was made in curvilinear fashion. We entered the abdomen through the umbilical hernia defect which was 1 cm in diameter. A 10mm balloon port was placed and pneumoperitoneum was established at 15mm Hg. Inspection of the abdomen demonstrated no evidence of injury upon entry. Two 5 mm ports were then placed under direct visualization in the right and left lower quadrant lateral to the rectus muscle. A left direct and indirect hernia were present in addition to a direct right inguinal hernia. . There were adhesions between the sigmoid colon and the left pelvic side wall which were carefully dissected. Starting on the left side the peritoneum 4 cm superior to the deep inguinal ring between the medial umbilical ligament and the anterior superior iliac spine was incised. The medial preperitoneal dissection was carried out into the space of Retzius bluntly, the bladder was swept inferiorly, the pubis and Jovan's ligament were identified. Next attention was turned towards the lateral aspect of the peritoneal flap. The preperitoneal fat with the testicular vessels was carefully dissected off the inferior peritoneal flap. The cord was carefully inspected and the indirect hernia sac was skeltonized off the cord preserving the testicular vessels and the vas deferns. The attachements to the direct hernia sac were divided and the direct defect was reduced. A large Bard 3D Max mesh was then placed into the abdomen and positioned such that the myopectineal orifice was completely covered with good overlap on all sides. The peritoneal flap was then repositioned back to its original position and a running V lock suture was used to close the peritoneum such that no bowel could herniate into the preperitoneal space. The area was examined for hemostasis. Next the right side was addressed. The peritoneum 4 cm superior to the deep inguinal ring between the medial umbilical ligament and the anterior superior iliac spine was incised. The medial preperitoneal dissection was carried out into the space of Retzius bluntly, the bladder was swept inferiorly, the pubis and Jovan's ligament were identified. Next attention was turned towards the lateral aspect of the peritoneal flap. The preperitoneal fat with the testicular vessels was carefully dissected off the inferior peritoneal flap. The cord was carefully inspected there was no evidence of indirect defect or cord lipoma. The attachements to the direct hernia sac were divided and the direct defect was reduced. A large Bard 3D Max mesh was then placed into the abdomen and positioned such that the myopectineal orifice was completely covered with good overlap on all sides. The peritoneal flap was then repositioned back to its original position and a running V lock suture was used to close the peritoneum such that no bowel could herniate into the preperitoneal space. The area was examined for hemostasis. The 5mm trocars were removed under direct visualization and pneumoperitoneum was deflated through the umbilical trocar. Given the size of the umbilical defect 1 cm the umbilicus was closed primarily with 0-Vicryl in figure of 8 fashion, skin closed with 4-0 Monocyl followed by Dermabond. The sponge and instrument count at the end of the case was correct. Both testicles were entirely within the scrotum at the end of the case. The patient emerged from anesthsia was extubated and transferred to recovery in stable condition. Complications: none Post-operative Condition: stable Disposition: same day surgery
--- NOTE | 2023-04-13 17:16 | SUR.PHASEII ---
Pt up to BR at 1630. Dressed self, unable to void. C/O very mild nausea. Tolerated chelsea jane. Now walking.
--- NOTE | 2023-04-13 17:35 | SUR.PHASEII ---
17[address] Called and spoke to Dr Bird. Informed MD that patient has not voided, has been up walking. No need to void. Abdomen soft with no distention and bladder scan for 15-18ml and no desire to void. Plan DC to home, patient to take his urology meds when he gets home call MD or return to ED if unable to void in the next 6-8 hours.
== END 2023-04-13 17:30 | disposition home or self-care (01) ==
PROVIDERS: PCP Family Medicine; Referring Provider Surgery; Visit Provider Surgery
PROC: 0YQ64ZZ Repair Left Inguinal Region, Percutaneous Endoscopic Approach (ICD-10-PCS; CPT 49650; principal; 2023-04-13 12:15)
PROC: (CPT 49650; 2023-04-13 12:15)
DX: K40.20 Bilateral inguinal hernia, without obstruction or gangrene, not specified as recurrent (principal); K42.9 Umbilical hernia without obstruction or gangrene; K66.0 Peritoneal adhesions (postprocedural) (postinfection)
CPT/HCPCS: 49650; 82962; J0690; J1170; J1885; J2405; J2704; J3010

== ENCOUNTER → 2023-06-07 13:26 | Outpatient (CLI) | payer MEDICARE, OTHER, SELFPAY ==
--- NOTE | 2023-06-07 13:28 | DI.RAD.S_ITS ---
PROCEDURE: XR HIP W PEL IF DONE JAYLAN MIN 4V INDICATIONS: b/l hip pain @ trochanter. R>L TECHNIQUE: AP pelvis with lateral view(s) of the bilateral hip(s). COMPARISON: None. FINDINGS: Bones: No fractures or dislocations. [id number] bilateral hip joint osteoarthritic changes are seen with joint space narrowing and subchondral sclerosis slightly worse on the right side. No evidence of avascular necrosis of femoral head. Pelvic ring appears intact. No suspicious bony lesions. Soft tissues: The visualized bowel gas pattern is normal. No suspicious soft tissue calcifications. IMPRESSION: No pelvic or hip fracture. No hip dislocation. Right worse than left bilateral hip joint osteoarthritis. No evidence of avascular necrosis. Dictated by: Dez Lindsey M.D. on 06/07/2023 at 16:51 Approved by: Dez Lindsey M.D. on 06/07/2023 at 16:52
== END ==
PROVIDERS: PCP Family Medicine; Referring Provider Physician Assistant; Visit Provider Physician Assistant
DX: M16.0 Bilateral primary osteoarthritis of hip (principal); M25.551 Pain in right hip; M25.552 Pain in left hip
CPT/HCPCS: 73522

== ENCOUNTER → 2023-07-25 14:53 | Outpatient (CLI) | payer MEDICARE, OTHER, SELFPAY ==
[2023-07-25 16:30] LABS: Prostate Specific Antigen 1.19 ng/mL (0.10-4.00)
== END ==
LOC: LAB 14:54
PROVIDERS: PCP Family Medicine; Referring Provider Specialist; Visit Provider Specialist
DX: N40.1 Benign prostatic hyperplasia with lower urinary tract symptoms (principal); N13.8 Other obstructive and reflux uropathy
CPT/HCPCS: 36415; 84153

== ENCOUNTER → 2023-09-29 10:09 | Outpatient (CLI) | payer MEDICARE, OTHER, SELFPAY ==
--- NOTE | 2023-09-29 10:12 | DI.US.S_ITS ---
PROCEDURE: US ABDOMEN COMPLETE INDICATIONS: eval epigastric pain TECHNIQUE: Real-time scanning was performed of the abdominal and retroperitoneal organs, with image documentation. COMPARISON: [facility], CT, ABDOMEN/PELVIS WITH CONTRAST, 11/19/2016, 11:38. FINDINGS: Liver: The liver demonstrates normal size. The liver demonstrates generalized mildly increased echogenicity. This decreases ultrasound sensitivity for detection of hepatic masses. The main portal vein demonstrates normal size and demonstrates normal appearing, hepatopetal flow. Gallbladder: No findings of gallstones or sludge are seen. The gallbladder wall is not thickened, measuring 3 mm or less. No specific pericholecystic fluid is seen. The sonographic Taylor sign is negative. Biliary ducts: The common bile duct is dilated to 10 mm. Pancreas: Not well seen, obscured by overlying bowel gas. Spleen: Spleen is normal in size and homogeneous in echotexture. Kidneys: A right pelvic kidney is seen, which demonstrates an irregular contour and a potential duplicated renal collecting system. Right kidney measures 9.7 cm long; left kidney measures 11.4 cm long. No hydronephrosis or nephrolithiasis. No solid masses. Aorta: Visualized aorta is normal in caliber at less than 3 cm. Iliacs: Proximal common iliac arteries are normal in caliber at less than 2.5 cm. IVC: Intrahepatic inferior vena cava is patent. Miscellaneous: No free abdominal fluid. IMPRESSION: The gallbladder demonstrates a normal sonographic appearance. There is dilatation of the common bile duct measuring up to 10 mm. If clinically appropriate, an MRCP could be considered for further evaluation (assuming that there is no contraindication to MRI). 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 The liver demonstrates increased echogenicity. This finding is nonspecific, yet it is most commonly attributed to fatty infiltration. Dictated by: Clint Hagan M.D. on 09/29/2023 at 12:08 Approved by: Clint Hagan M.D. on 09/29/2023 at 12:10
[2023-09-29 11:51] LABS: Add Manual Diff / Slide Review NO; Basophils Absolute Auto 0 /uL (0-100); Basophils Percent Auto 0.9 % (0-2); Eosinophils Absolute Auto 100 /uL (0-450); Eosinophils Percent Auto 1.9 % (2-4); Hematocrit 40.7 % (41-53); Hemoglobin 13.6 g/dL (13.5-17.5); Lymphocytes Absolute Auto 1100 /uL (1100-4500); Mean Corpuscular HGB Conc 33.4 % (30-36); Mean Corpuscular Hemoglobin 27.3 PG (26-34); Mean Corpuscular Volume 81.7 fL (80-100); Monocytes Absolute Auto 400 /uL (0-900); Monocytes Percent Auto 9.6 % (3-14); Neutrophils Absolute Auto 2400 /uL (1500-7000); Neutrophils Percent Auto 59.6 % (50-75); Platelet Count 189 X10^3/uL (150-400); Red Blood Cell Count 4.98 X10^6/uL (4.5-5.9); Red Cell Distribution Width 14.8 % (11.6-14.8); White Blood Cell Count 4.1 X10^3/uL (4.5-11.0)
[2023-09-29 12:45] LABS: TSH w/ Reflex to FT4 1.04 uIU/mL (0.47-4.68)
[2023-09-29 13:07] LABS: Alanine Aminotransferase 34 IU/L (<50); Albumin 4.1 g/dL (3.5-5.0); Albumin Globulin Ratio 1.6 (1.0-2.8); Alkaline Phosphatase 122 U/L (38-126); Aspartate Aminotransferase 33 IU/L (17-59); BUN Creatinine Ratio 21.5 (6-22); Bilirubin Total 0.7 mg/dL (0.2-1.3); Blood Urea Nitrogen 20 mg/dL (9-20); Carbon Dioxide 27 mmol/L (22-32); Chloride 103 mmol/L (98-107); Estimated Glomerular Filt Rate > 60 mL/min (>60); Globulin 2.5 g/dL (1.7-4.1); Glucose 106 mg/dL (80-110); HEMOLYSIS < 15 (0-50); Lipase 93 U/L (23-300); Potassium 4.8 mmol/L (3.4-5.1); Sodium 136 mmol/L (137-145); Total Protein 6.6 g/dL (6.3-8.2)
== END ==
PROVIDERS: PCP Family Medicine; Referring Provider Family Medicine; Visit Provider Family Medicine
DX: K83.8 Other specified diseases of biliary tract (principal); R10.13 Epigastric pain; I10 Essential (primary) hypertension; K42.9 Umbilical hernia without obstruction or gangrene; R63.0 Anorexia; N40.1 Benign prostatic hyperplasia with lower urinary tract symptoms; N13.8 Other obstructive and reflux uropathy
CPT/HCPCS: 36415; 76700; 80053; 83690; 84443; 85025

== ENCOUNTER → 2023-10-14 13:09 | Outpatient (CLI) | payer MEDICARE, SELFPAY ==
--- NOTE | 2023-10-14 13:11 | DI.MRI.S_ITS ---
PROCEDURE: MR ABDOMEN WO CON INDICATIONS: eval dialated bile duct TECHNIQUE: Coronal HASTE through the abdomen, axial 2-D FLASH in- and [id number], and breath-hold T2 FSE with fat saturation through the biliary system and pancreas. Oblique coronal and axial thin-slice HASTE, radial thick-slab HASTE centered on the extrahepatic bile ducts. Intravenous secretin: Not requested. COMPARISON: [facility], , US ABDOMEN COMPLETE, 09/29/2023, 10:49. FINDINGS: Image quality: Diagnostic. Gallbladder: No gallstones or wall thickening. Biliary ducts: No biliary dilation. Common bile duct measures 2 millimeters. Pancreas: 1.2 centimeter T2 hyperintense cystic lesion in the pancreatic uncinate process, without nodularity or ductal dilation (series 5, image 19). OTHER: Lung bases: Unremarkable. Liver: No solid mass. Spleen: Size is within normal limits. Adrenal Glands: No adrenal nodules. Kidneys and Ureters: No hydronephrosis. No solid mass. No complex renal cystic lesion which requires follow up. Stomach and Bowel: Normal colonic caliber, without significant wall thickening. Peritoneum: No abnormal intraperitoneal fluid. No free air. Ventral Wall: No hernia. Abdominal Nodes: No retroperitoneal or mesenteric adenopathy by size criteria. Vessels: Aorta and inferior vena cava are normal in size. Bones: No aggressive osseous abnormality. IMPRESSION: Common bile duct measures 2 millimeters, within normal limits for age. Pancreatic cystic lesion measuring 1.2 centimeters in the uncinate process, without suspicious features. Findings probably represent a side branch IPMN. Consider 2 year follow-up x5 per consensus guidelines. Dictated by: Bhupinder Malcolm M.D. on 10/14/2023 at 14:31 Approved by: Bhupinder Malcolm M.D. on 10/14/2023 at 14:34
== END ==
PROVIDERS: PCP Family Medicine; Referring Provider Family Medicine; Visit Provider Family Medicine
DX: K83.8 Other specified diseases of biliary tract (principal); K86.9 Disease of pancreas, unspecified; R10.13 Epigastric pain
CPT/HCPCS: 74181

== ENCOUNTER → 2024-05-30 15:03 | Outpatient (CLI) | payer MEDICARE, OTHER, SELFPAY ==
--- NOTE | 2024-05-30 15:05 | DI.US.S_ITS ---
PROCEDURE: US ABDOMEN LIMITED INDICATIONS: Suspected umbilical hernia TECHNIQUE: Real-time focused scanning was performed of the umbilicus, with image documentation. COMPARISON: [facility], , US ABDOMEN COMPLETE, 09/29/2023, 10:49. FINDINGS: In the area of clinical concern just superior to the umbilicus there is a fat containing hernia with sac measuring approximately 3.4 x 1.4 x 2.9 cm. Fascial defect measures 1.3 cm sagittally and 1.2 cm transversely. Hernia sac is incompletely reducible by mortgage advisor. IMPRESSION: Supraumbilical fat containing hernia with hernia sac measuring up to 3.9 cm. Approved by: Mary Clayton M.D.,Ph.D. on 05/31/2024 at 21:34
== END ==
PROVIDERS: PCP Family Medicine; Referring Provider Nurse Practitioner Family; Visit Provider Nurse Practitioner Family
DX: K42.9 Umbilical hernia without obstruction or gangrene (principal)
CPT/HCPCS: 76705

== ENCOUNTER → 2024-06-21 09:03 | Outpatient (CLI) | payer MEDICARE, OTHER, SELFPAY ==
[2024-06-21 10:08] LABS: Add Manual Diff / Slide Review NO; Basophils Absolute Auto 100 /uL (0-100); Basophils Percent Auto 1.1 % (0-2); Eosinophils Absolute Auto 100 /uL (0-450); Eosinophils Percent Auto 2.3 % (2-4); Hematocrit 38.4 % (41-53); Hemoglobin 12.8 g/dL (13.5-17.5); Lymphocytes Absolute Auto 1100 /uL (1100-4500); Lymphocytes Percent Auto 22.7 % (25-40); Mean Corpuscular HGB Conc 33.4 % (30-36); Mean Corpuscular Hemoglobin 26.1 PG (26-34); Mean Corpuscular Volume 78.2 fL (80-100); Monocytes Absolute Auto 500 /uL (0-900); Monocytes Percent Auto 11.3 % (3-14); Neutrophils Absolute Auto 3000 /uL (1500-7000); Neutrophils Percent Auto 62.6 % (50-75); Platelet Count 192 X10^3/uL (150-400); Red Blood Cell Count 4.91 X10^6/uL (4.5-5.9); Red Cell Distribution Width 15.4 % (11.6-14.8); White Blood Cell Count 4.8 X10^3/uL (4.5-11.0)
[2024-06-21 10:33] LABS: HEMOLYSIS < 15 (0-50)
[2024-06-21 10:38] LABS: Alanine Aminotransferase 36 IU/L (<50); Albumin 4.2 g/dL (3.5-5.0); Albumin Globulin Ratio 1.8 (1.0-2.8); Alkaline Phosphatase 113 U/L (38-126); Aspartate Aminotransferase 39 IU/L (17-59); BUN Creatinine Ratio 21.6 (6-22); Bilirubin Total 0.5 mg/dL (0.2-1.3); Blood Urea Nitrogen 21 mg/dL (9-20); Calcium 9.3 mg/dL (8.4-10.2); Carbon Dioxide 27 mmol/L (22-32); Chloride 103 mmol/L (98-107); Cholesterol 180 mg/dL (140-199); Estimated Glomerular Filt Rate > 60 mL/min (>60); Globulin 2.4 g/dL (1.7-4.1); Glucose 105 mg/dL (80-110); HDL Cholesterol 45 mg/dL (40-60); LDL Cholesterol Calculated 119 mg/dL (<100); Potassium 4.7 mmol/L (3.4-5.1); Sodium 138 mmol/L (137-145); Total Protein 6.6 g/dL (6.3-8.2); Triglycerides 82 mg/dL (35-150)
== END ==
PROVIDERS: PCP Family Medicine; Referring Provider Family Medicine; Visit Provider Family Medicine
DX: Z00.00 Encounter for general adult medical examination without abnormal findings (principal); N13.8 Other obstructive and reflux uropathy; Z12.5 Encounter for screening for malignant neoplasm of prostate; N40.1 Benign prostatic hyperplasia with lower urinary tract symptoms
CPT/HCPCS: 36415; 80053; 80061; 85025; G0103

== ENCOUNTER 2024-07-18 06:36 | Day surgery (SDC) | payer MEDICARE, OTHER, SELFPAY ==
[2024-07-10 15:14] VITALS: BMI 23.9
[2024-07-18] VITALS (8 sets, daily range): BP systolic 92–178; BP diastolic 49–92; PULSE 63–82; RESP 11–20; TEMP 36.1–36.3; O2SAT 94–100; BMI 22.8
[2024-07-18] MEDS: LACTATED RINGERS 1,000 ML 42 ML IV (07:08)
--- NOTE | 2024-07-18 07:38 | PM.PREOP ---
Pre-operative Note Interval Note History & Physical reviewed/Exam performed by Physician: Yes Changes to H&P: No
[2024-07-18] MEDS: CEFAZOLIN 2 GM/100 ML PREMIX 100 ML IV (07:50)
--- NOTE | 2024-07-18 08:01 | SUR.OPER ---
Supine on padded OR bed, head on pillow, arms secured on padded arm boards at <90 degrees abduction, legs uncrossed, safety belt at thigh, tape over blanket over lower legs.
[2024-07-18] MEDS: LIDOCAINE 1% 20 ML INJ (08:14)
[2024-07-18] MEDS: BUPIVACAINE 0.25% W/ EPI 30 ML VIAL INJ (08:16)
--- NOTE | 2024-07-18 08:30 | P.OP_ITS ---
Operative Date/Time/Diagnoses Date of procedure: 07/18/24 Time of procedure: 08:31 Pre-op diagnosis: recurrent incisional hernia Post-op diagnosis: same Procedure & Clinicians Procedure: Open repair of recurrent incisional hernia, over 4 cm in size, with mesh, Bard Ventralex 8 cm round Same procedure as scheduled: Yes Indications: Recurrent ventral hernia Surgeon: Tony Miguel Movement Assembly Final Inspector: Julius Tejeda Click Yes if Unassisted: No Anesthesia Type: General Operative Notes Findings: greater than 4 cm, fat-containing hernia Closure Type: primary Specimen(s): none sent Prosthetic devices, grafts, tissues, transplants, or devices: 8 cm Bard Ventralex Round Estimated Blood Loss (mL): 5 Procedure in detail: Patient was brought to the operating room suite after consent was obtained. Time-out was performed. The abdomen was prepped and draped in the usual fashion. Total of 40 mL of 0.25% Marcaine with epi and 1% lidocaine plain were infiltrated for a field block. The pre-existing infraumbilical incision was opened with a 15 blade. Metzenbaum scissors were used to dissect the umbilical stalk away from the anterior fascia. I was a Irish cheese defect starting at the umbilicus and extending greater than 4 cm superiorly. All the hernia sacs were dissected free and the Irish-cheese bridges were connected to accommodate a 8 cm Ventralex round mesh. Metzenbaum scissors were used to free adhesions of the preperitoneal fat from the subcutaneous fat as well as from under the fascia to develop a preperitoneal plane to accommodate the mesh. Multiple interrupted 0 Ethibond sutures were used to reapproximate the fascia as well as to incorporate the mesh into the closure. The umbilical stalk was then affixed to the anterior fascia using 3-0 Vicryl. Skin was closed with 4-0 Monocryl and Dermabond. Patient awoke was transferred to PACU in stable condition for anticipated same-day discharge. Complications: none Post-operative Condition: stable Disposition: PACU Plan for aftercare: Home with spouse
[2024-07-18] MEDS: TIZANIDINE 4 MG TABLET 2 MG PO (08:52)
[2024-07-18] MEDS: fentaNYL 100 MCG/2 ML INJ IV (08:56)
== END 2024-07-18 09:25 | disposition home or self-care (01) ==
PROVIDERS: PCP Family Medicine; Referring Provider Surgery; Visit Provider Surgery
PROC: (CPT 49615; principal; 2024-07-18 07:45)
DX: K43.2 Incisional hernia without obstruction or gangrene (principal); K66.0 Peritoneal adhesions (postprocedural) (postinfection)
CPT/HCPCS: 49615; C1781; J0330; J0690; J1100; J1885; J2405; J2704; J3010

== ENCOUNTER → 2024-09-27 14:25 | Outpatient (CLI) | payer MEDICARE, OTHER, SELFPAY ==
--- NOTE | 2024-09-27 14:26 | DI.RAD.S_ITS ---
PROCEDURE: XR LUMBAR SPINE MIN 4V INDICATIONS: BACK PAIN TECHNIQUE: 5 views of the lumbar spine were acquired, including bilateral oblique views. COMPARISON: [facility] ([place]), CR, XR LUMBAR SPINE 2- 3V, 03/26/2021, 14:21. FINDINGS: Incidental note is made of moderate amount of stool throughout the colon in a pattern of constipation, mildly dilated small bowel, mild ileus/bowel stasis partially evaluated. If there is clinical suspicion of bowel obstruction or other abdominal abnormality CT could be performed. Mild dextroscoliosis. Grade 1 spondylolisthesis with suspected bilateral pars defects L4 on L5. Degenerative changes of the lumbar spine with disc space narrowing, osteophytes, facet osseous hypertrophic changes most notably L3-4, L4-5 and L5-S1 with suspected bilateral neural foraminal narrowing. Otherwise lumbar vertebral body heights within normal limits without radiographic evidence of fracture. Degenerative changes of the bilateral hips with joint space narrowing and osteophytes calcarine Michael grade 3. IMPRESSION: Grade 1 spondylolisthesis/spondylolisthesis L4 on L5. Degenerative changes. If symptoms persist or worsen, or there is high clinical suspicion of lumbar abnormality, CT or MRI could be performed. Other findings as above Dictated by: Nando Cruz M.D. on 09/27/2024 at 16:01 Approved by: Nando Cruz M.D. on 09/27/2024 at 16:04
== END ==
PROVIDERS: PCP Family Medicine; Referring Provider Physical Medicine & Rehabilitation; Visit Provider Physical Medicine & Rehabilitation
DX: M47.816 Spondylosis without myelopathy or radiculopathy, lumbar region (principal); M47.817 Spondylosis without myelopathy or radiculopathy, lumbosacral region; M48.061 Spinal stenosis, lumbar region without neurogenic claudication; M43.16 Spondylolisthesis, lumbar region
CPT/HCPCS: 72110

== ENCOUNTER → 2024-10-04 15:00 | Outpatient (CLI) | payer MEDICARE, OTHER, SELFPAY ==
--- NOTE | 2024-10-04 15:02 | DI.MRI.S_ITS ---
PROCEDURE: MR LUMBAR SPINE WO CON INDICATIONS: Neurogenic claudication TECHNIQUE: Noncontrast sagittal T1 spin echo and T2 fast echo, sagittal STIR, and T2 fast spin echo through the lumbar spine. In cases with scoliosis, additional coronal T2 fast spin echo may be performed. COMPARISON: [facility], MR, MR LUMBAR SPINE WITHOUT CONTRAST, 10/26/2022, 17:00. [facility], MR, MR LUMBAR SPINE WO CON, 09/11/2021, 12:34. FINDINGS: Image quality: Excellent. Alignment and Curvature: There is grade 1 L5 retrolisthesis as well as L2 retrolisthesis Bone Marrow: Marrow is of normal overall signal. No acute vertebral body compression fractures. There is laminectomy at L4 and partial laminectomy at L5. No suspicious lesion seen. Spinal Cord: Conus medullaris terminates at the T12 level. Visualized cord demonstrates normal signal and size. Paraspinous Soft Tissues: No paravertebral masses. T12-L1: Normal appearance. L1-L2: Mild disc bulge, no significant spinal stenosis. L2-L3: There is disc bulge with superimposed left intraforaminal and lateral protrusion. There is bilateral facet arthropathy and ligamentum flavum thickening. There is mild central spinal stenosis as well as mild to moderate left lateral recess stenosis and mild bilateral foraminal stenosis. L3-L4: There is disc bulge as well as significant bilateral facet arthropathy, with a facet joint effusion on the left, also with ligamentum flavum thickening. There is moderate to severe central spinal stenosis as well as moderate bilateral lateral recess stenosis, more on the left and mild bilateral foraminal stenosis. L4-L5: There is residual facet arthropathy with moderate left and mild to moderate right lateral recess and foraminal stenosis. No significant central canal narrowing. There is also persistent disc bulge. L5-S1: There is disc bulge with a superimposed slightly left paracentral extrusion extending inferiorly to suprapedicular level measuring 8 x 4.5 mm. There is also bilateral facet arthropathy. There is moderate bilateral lateral recess stenosis, more on the left as well as mild to moderate bilateral foraminal stenosis, also with mild central canal narrowing. IMPRESSION: 1. Postoperative changes at L4 and L5. There is more prominent degenerative disease at L2-L3 and L3-L4, with moderate to severe central stenosis at L3-L4. 2. There is a new disc extrusion at L5-S1, with persistent degenerative changes with mild central canal stenosis as well as moderate bilateral lateral spinal stenosis, more on the left. Dictated by: Clemente Marshall M.D. on 10/06/2024 at 17:59 Approved by: Clemente Marshall M.D. on 10/06/2024 at 18:10
== END ==
PROVIDERS: PCP Family Medicine; Referring Provider Family Medicine; Visit Provider Physical Medicine & Rehabilitation
DX: M47.26 Other spondylosis with radiculopathy, lumbar region (principal); M51.16 Intervertebral disc disorders with radiculopathy, lumbar region; M48.061 Spinal stenosis, lumbar region without neurogenic claudication; M51.17 Intervertebral disc disorders with radiculopathy, lumbosacral region; M47.27 Other spondylosis with radiculopathy, lumbosacral region; M48.07 Spinal stenosis, lumbosacral region
CPT/HCPCS: 72148

== ENCOUNTER 2024-10-09 13:00 | Outpatient (CLI) | payer MEDICARE, OTHER, SELFPAY ==
[2024-10-09] VITALS (8 sets, daily range): BP systolic 121–176; BP diastolic 70–89; PULSE 75–90; RESP 14–16; TEMP 36.8; O2SAT 96–100
[2024-10-09] MEDS: MIDAZOLAM 2 MG/2 ML VIAL IV (14:22)
[2024-10-09] MEDS: BUPIVACAINE 0.25% (PF) VIAL 2 ML INJ (14:25)
[2024-10-09] MEDS: BETAMETHASONE 30 MG/5 ML MDV 12 MG INJ (14:26)
[2024-10-09] MEDS: DEXAMETHASONE 10 MG/ML VIAL INJ (14:26)
--- NOTE | 2024-10-09 14:34 | P.PCN_ITS ---
Date/Time/Diagnoses Date of procedure: 10/09/24 Time of procedure: 14:34 Pre-procedure diagnosis: 1. HNP WITH RADICULAR FEATURES, 2. MULTILEVEL CENTRAL STENOSIS, Post-procedure diagnosis: same Procedure Notes Procedure: 1. FLUOROSCOPICALLY GUIDED CONTRAST CONTROLLED INTERLAMINAR EPIDURAL STEROID INJECTION - L5/S1 Indications: Paul is referred by Dr. Cage for treatment of Bilateral Foraminal Stenosis L>R LE symptoms. Physician: Vinicius Cabrera Total Fluoroscopy time (seconds): 6 Total sedation minutes: 10 Complications: none Procedure in detail & Post-procedure care: FINDINGS Multilevel Central Spinal Stenosis with Nerve Root Compression DESCRIPTION OF PROCEDURE Fluoroscopically guided, contrast-controlled L5/S1 translaminar epidural steroid injection. Following review of allergy and review of potential side effects and complications, including, but not necessarily limited to, infection, allergic reaction, local tissue breakdown, temporary as well as permanent nerve injury, paralysis, stroke and possible , the patient indicated that the patient understood and agreed to proceed. An informed consent document was signed by the patient, witnessed by a nurse, and placed in the patient's chart. Additionally, other treatment options including modalities, medications, and physical therapy were reviewed with the patient. After review of previous anaesthesic history and IV conscious sedation the patient was deemed safe to proceed with today?s procedure with IV conscious sedation as ASA class II designation. Safety time-out was performed to confirm patient ID, procedure to be performed and site of procedure. IV sedation was accomplished with a combination of 2mg of Versed administered by the RN after DO order, titrated to patient comfort during the course of the procedure while the patient remained responsive to all verbal commands. In the prone position, following sterile prep and drape of the lumbar region, the L5/S1 translaminar space was identified fluoroscopically. The skin was anesthetized via a 25-gauge, 1.5-inch needle with 1% lidocaine solution. At this point, a 22-gauge short bevel spinal needle was atraumatically introduced and advanced under fluoroscopic guidance into the region of the L5/S1 translaminar space. Depth was confirmed on lateral view. Radiological data, including multiple fluoroscopic views of the lumbar spine, reveal a spinal needle at the L5/S1 translaminar space. Lateral views then show placement of the needle in the epidural space. Subsequent views show contrast material flowing superiorly and inferiorly in the epidural space. No vascular or intrathecal uptake is observed. At this point, using loss of resistance technique with saline and air, the epidural space was entered. This was confirmed following negative aspiration with injection of approximately 1.5cc of Isovue 200, showing excellent epidural flow without vascular or intrathecal uptake. At this point, 1cc of 0.25% yifan dorothy solution combined with 3cc or 10mg of dexamethasone and 12mg of betamethasone was injected without incident. The patent tolerated the procedure without signs of symptoms of complications prior to transfer to the recovery area for further monitoring. The patient was then transferred to the recovery area where they were observed for an appropriate period of time after the injection. The patient reported a VAS score of 6 prior to the procedure and a post-procedure VAS of 0. POST OP INSTRUCTIONS The patient was provided a Pain Log to continue to record their response to the target-specific procedure prior to follow-up visit with their referring physician. Additionally, specific post-injection care instructions and a contact number to our office were provided if concerns arise regarding possible complications associated with the procedure are suspected.
== END 2024-10-09 14:55 | disposition home or self-care (01) ==
LOC: RAD 13:00
PROVIDERS: PCP Family Medicine; Referring Provider Physical Medicine & Rehabilitation; Visit Provider Physical Medicine & Rehabilitation
DX: M51.17 Intervertebral disc disorders with radiculopathy, lumbosacral region (principal); M48.07 Spinal stenosis, lumbosacral region
CPT/HCPCS: 62323; 99152; J0702; J1100; J2250

== ENCOUNTER 2024-12-18 12:55 | Outpatient (CLI) | payer MEDICARE, OTHER, SELFPAY ==
[2024-12-18] VITALS (8 sets, daily range): BP systolic 129–166; BP diastolic 70–87; PULSE 74–92; RESP 15–16; TEMP 36.3; O2SAT 97–100
[2024-12-18] MEDS: MIDAZOLAM 2 MG/2 ML VIAL IV (14:03)
[2024-12-18] MEDS: LIDOCAINE 1% 20 ML 5 ML INJ (14:08)
--- NOTE | 2024-12-18 14:22 | P.PCN_ITS ---
Date/Time/Diagnoses Date of procedure: 12/18/24 Time of procedure: 14:22 Pre-procedure diagnosis: FACET ARTHROPATHY Post-procedure diagnosis: same Procedure Notes Procedure: 1. BILATERAL L3, L4 AND L5 DIAGNOSTIC MB BLOCKS Indications: Paul is referred by Dr. Cage for treatment of Bilateral Axial LBP. Physician: Vinicius Cabrera Total Fluoroscopy time (seconds): 12 Total sedation minutes: 15 Complications: none Procedure in detail & Post-procedure care: DESCRIPTION OF PROCEDURE Fluoroscopically guided, contrast-controlled bilateral L3, L4 and L5 medial branch blocks with 0.5cc of 0.5% Marcaine. Following review of allergy and review of potential side effects and complications, including, but not necessarily limited to, infection, allergic reaction, local tissue breakdown, nerve injury, paralysis, stroke and possible , the patient indicated that the patient understood and agreed to proceed. An informed consent document was signed by the patient, witnessed by a nurse, and placed in the patient's chart. After review of previous anaesthesic history and IV conscious sedation the patient was deemed safe to proceed with today's procedure with IV conscious sedation as ASA class II designation. Safety time-out was performed to confirm patient ID, procedure to be performed and site of procedure. IV sedation was accomplished with a combination of 2mg of Versed was administered by the RN after DO order, titrated to patient comfort during the course of the procedure while the patient remained responsive to all verbal commands In the prone position, following sterile prep and drape of the lumbar region, the right L3, L4 and L5 anatomical location of the medial branch of the dorsal ramus was identified fluoroscopically. Subsequently an anesthetic skin wheal using 1% lidocaine solution was initiated at each of the anatomical spots. Subsequently then a 22-gauge 3.5-inch spinal needle was atraumatically introduced and advanced under fluoroscopic guidance at each of the corresponding sites at the right L3, L4 and L5 MB. After negative aspiration, 0.2cc of Isovue 200 was injected, confirming placement without vascular or intrathecal uptake. Subsequently then 0.5cc of 0.5% Marcaine solution was injected at each of the corresponding sites at the right L3, L4 and L5 medial branch locations. The identical procedure was replicated on the left. The patient tolerated the proc edure well without signs or symptoms of complications. The patient tolerated the procedure well without signs or symptoms of complications prior to transfer to the recovery area continued monitoring without incident. Post-procedure, the patient was monitored initiating provocative activities to measure the amount of relief from block of the facetogenic pain. The patient reported a VAS of 7 prior to the procedure and a post-procedure VAS of 1. It has been a pleasure to assist in the diagnostic and therapeutic care of your patient. POST OP INSTRUCTIONS The patient was provided with a Pain Log to complete over the next several hours and subsequent days prior to the patient's follow up with the ordering physician. If the patient has mobile sales assistant relief to the solution applied, then they may be a candidate for medial branch rhizotomy. The patient is aware, was provided, once again, with a Pain Log and will follow up with the referring physician for review and clinical correlation
== END 2024-12-18 14:35 | disposition home or self-care (01) ==
LOC: RAD 12:56
PROVIDERS: PCP Family Medicine; Referring Provider Physical Medicine & Rehabilitation; Visit Provider Physical Medicine & Rehabilitation
DX: M47.816 Spondylosis without myelopathy or radiculopathy, lumbar region (principal)
CPT/HCPCS: 64493; 64494; 99152; J2250

== ENCOUNTER 2025-03-05 14:30 | Outpatient (CLI) | payer MEDICARE, OTHER, SELFPAY ==
[2025-03-05] VITALS (8 sets, daily range): BP systolic 143–173; BP diastolic 84–99; PULSE 73–91; RESP 15–18; TEMP 36.7; O2SAT 98–100
[2025-03-05] MEDS: MIDAZOLAM 2 MG/2 ML VIAL IV (16:01)
[2025-03-05] MEDS: LIDOCAINE 2% INJ MDV 20ML 5 ML INJ (16:04)
[2025-03-05] MEDS: LIDOCAINE 1% 20 ML 5 ML INJ (16:04)
--- NOTE | 2025-03-05 16:14 | P.PCN_ITS ---
Date/Time/Diagnoses Date of procedure: 03/05/25 Time of procedure: 16:15 Pre-procedure diagnosis: 1. FACET ARTHROPATHY Post-procedure diagnosis: same Procedure Notes Procedure: 1. BILATERAL L3, L4 AND L5 DIAGNOSTIC MB BLOCKS Indications: Paul is referred by Dr. Cage for treatment of Bilateral Axial LBP. Physician: Vinicius Cabrera Total Fluoroscopy time (seconds): 9 Total sedation minutes: 10 Complications: none Procedure in detail & Post-procedure care: DESCRIPTION OF PROCEDURE Fluoroscopically guided, contrast-controlled bilateral L3, L4 and L5 medial branch blocks with 0.5cc of 2% Lidocaine. Following review of allergy and review of potential side effects and complications, including, but not necessarily limited to, infection, allergic reaction, local tissue breakdown, nerve injury, paralysis, stroke and possible , the patient indicated that the patient understood and agreed to proceed. An informed consent document was signed by the patient, witnessed by a nurse, and placed in the patient's chart. After review of previous anaesthesic history and IV conscious sedation the patient was deemed safe to proceed with today's procedure with IV conscious sedation as ASA class II designation. Safety time-out was performed to confirm patient ID, procedure to be performed and site of procedure. IV sedation was accomplished with a combination of 2mg of Versed was administered by the RN after DO order, titrated to patient comfort during the course of the procedure while the patient remained responsive to all verbal commands In the prone position, following sterile prep and drape of the lumbar region, the right L3, L4 and L5 anatomical location of the medial branch of the dorsal ramus was identified fluoroscopically. Subsequently an anesthetic skin wheal using 1% lidocaine solution was initiated at each of the anatomical spots. Subsequently then a 22-gauge 3.5-inch spinal needle was atraumatically introduced and advanced under fluoroscopic guidance at each of the corresponding sites at the right L3, L4 and L5 MB. After negative aspiration, 0.2cc of Isovue 200 was injected, confirming placement without vascular or intrathecal uptake. Subsequently then 0.5cc of 2% Lidocaine solution was injected at each of the corresponding sites at the right L3, L4 and L5 medial branch locations. The identical procedure was replicated on the left. The patient tolerated the pro cedure well without signs or symptoms of complications. The patient tolerated the procedure well without signs or symptoms of complications prior to transfer to the recovery area continued monitoring without incident. Post-procedure, the patient was monitored initiating provocative activities to measure the amount of relief from block of the facetogenic pain. The patient reported a VAS of 7 prior to the procedure and a post-procedure VAS of 1. It has been a pleasure to assist in the diagnostic and therapeutic care of your patient. POST OP INSTRUCTIONS The patient was provided with a Pain Log to complete over the next several hours and subsequent days prior to the patient's follow up with the ordering physician. If the patient has metal sprayer protective coating relief to the solution applied, then they may be a candidate for medial branch rhizotomy. The patient is aware, was provided, once again, with a Pain Log and will follow up with the referring physician for review and clinical correlation
== END 2025-03-05 16:34 | disposition home or self-care (01) ==
LOC: RAD 14:31
PROVIDERS: PCP Family Medicine; Referring Provider Family Medicine; Visit Provider Physical Medicine & Rehabilitation
DX: M47.816 Spondylosis without myelopathy or radiculopathy, lumbar region (principal)
CPT/HCPCS: 64493; 64494; 99152; J2250